=== PATIENT | female | born 1955 | race Asian ===

== ENCOUNTER 2019-03-27 16:37 | Observation (INO) | payer SELFPAY ==
--- NOTE | 2019-03-27 17:49 | PDOC ---
Documentation entered by Anirudh Painter SCRIBE, acting as scribe for Angle Basilio DO. Angle Basilio DO: This documentation has been prepared by the Inocencio parham Xhesika, SCRIBE, under my direction and personally reviewed by me in its entirety. I confirm that the documentation accurately reflects all work, treatment, procedures, and medical decision making performed by me. Attending Attestation - Resident Resident Name: Taurus Thompson - ED Attending Attestation I have performed the following: I have examined & evaluated the patient, The case was reviewed & discussed with the resident, I agree w/resident's findings & plan, Exceptions are as noted - HPI HPI: 03/27/19 17:33 The patient is a 64 year old female, with a significant PMH of cardiac problem? who presents to the emergency department with chest palpitations. The patient is not Bengali speaking, however, as per phone tobacco cutter, the patient describes her chest pain as a weird sensation. As per tobacco cutter, the patient states at the onset of her chest palpitations, she endorsed a syncopal episode while cooking, but denies hitting her head or LOC. The patient states she takes a medication from [place], but does not know the name. The patient denies sweating or dizziness. Denies fever, chills, nausea, vomit, diarrhea and constipation. Denies dysuria, frequency, urgency and hematuria. Allergies: NKA Past surgical history: None reported Social history: None reported - Physicial Exam PE: 03/27/19 17:34 GENERAL: Awake, alert, and fully oriented, in no acute distress HEAD: No signs of trauma EYES: PERRLA, EOMI, sclera anicteric, conjunctiva clear ENT: Auricles normal inspection, hearing grossly normal, nares patent, oropharynx clear without exudates. Moist mucosa NECK: Normal ROM, supple, no lymphadenopathy, JVD, or masses LUNGS: Breath sounds equal, clear to auscultation bilaterally. No wheezes, and no crackles HEART: Regular rate and rhythm, normal S1 and S2, no murmurs, rubs or gallops ABDOMEN: Soft, nontender, normoactive bowel sounds. No guarding, no rebound. No masses EXTREMITIES: Normal range of motion, no edema. No clubbing or cyanosis. No cords, erythema, or tenderness NEUROLOGICAL: Cranial nerves II through XII grossly intact. Normal speech. SKIN: Warm, Dry, normal turgor, no rashes or lesions noted. - Medical Decision Making 03/27/19 17:44 I, Dr. Angle Basilio, DO, attest that this document has been prepared under my direction and personally reviewed by me in its entirety. I further attest, that it accurately reflects all work, treatment, procedures and medical decision -making performed by me. 03/27/19 17:46 a/p: 64yo mandarin speaking female with a syncopal episode at home -had cp/palpitations prior to syncope -no recent travel -no pain/palpitations now -chronic back pain -takes a cardiac med from [employer] -tobacco cutter used -will send for head ct, ekg, cxr, labs -recent cough- will add cultures as pt was hypotensive with cp upon medic arrival -after 1L NSS by medics bp improved -will monitor on tele for arrhythmia 03/27/19 18:20 cxr clear cp free here grand-daughter at the bedside who states they buy the med off the street, states her only medical problem is that she has "heart-attacks" dimer neg trop neg 03/27/19 18:30 microblog sent to [facility] for obs placement for further eval of syncope and cp 03/27/19 19:33 resident discussed the case with [facility] who accepts the patient to service Heart Score/ECG Review - ECG Intrepretation Comment:: 03/27/19 17:44 sinus at 79, nl axis, nl interval, t wave flattening diffusely, no acute st changes
[2019-03-27 17:51] LABS: BASO % 0.3 % (0-2.0); EOS % 0.3 % (0-4.5); HEMATOCRIT 36.3 % (32.4-45.2); LYMPH % 17.6 % (8-40); MCH 29.8 pg (25.7-33.7); MCHC 32.9 g/dl (32.0-36.0); MEAN CELL VOLUME 90.6 fl (80-96); MEAN PLT VOLUME 8.1 fl (7.5-11.1); MONO % 13.1 % (3.8-10.2); NEUT % 68.7 % (42.8-82.8); PLATELET COUNT 184 K/MM3 (134-434); RBC 4.01 M/mm3 (3.60-5.2); RDW 13.1 % (11.6-15.6)
[2019-03-27 17:55] LABS: VENOUS PH 7.41 (7.31-7.41); VENOUS PO2 37.8 mmHg (30-40)
[2019-03-27 18:04] LABS: INR 1.08 (0.83-1.09); PROTHROMBIN TIME (PATIENT) 12.8 SEC (9.7-13.0)
--- NOTE | 2019-03-27 18:19 | PDOC ---
History of Present Illness - General Chief Complaint: Syncope/Near Syncope Stated Complaint: SYNCOPE Time Seen by Provider: 03/27/19 17:00 History Source: Patient Exam Limitations: Language Barrier (Mandarin) - History of Present Illness Initial Comments: 03/27/19 17:43 64 yo female, Mandarin speaking, first time at [facility] unknown (pt states she has cardiac problem and takes an unknown medication written in Mandarin, family state it is not prescribed and buys it on the street) BIBA for syncopal episode. Pt reported to feel dizzy, got up to drink water, collapse without hitting head, no LOC but weak and unable to ambulate. EMS report a BP in the 50s on arrival, after fluids and trendelenberg, BP in the 100s and reported awake, alert, aox3. Pt reported CP that resolved, has no current complaints. Denies current CP, SOB, sweating, N/V/F/C, changes in bowel or bladder habits, back pain, abdominal pain Past History - Suicide/Smoking/Psychosocial Hx Smoking History: Never smoked *Physical Exam - Vital Signs Last Vital Signs Temp Pulse Resp BP Pulse Ox 98 F 77 18 136/68 99 03/27/19 16:57 03/27/19 17:25 03/27/19 17:25 03/27/19 17:25 03/27/19 17:25 ED Treatment Course - ADDITIONAL ORDERS Additional order review: Laboratory Results 03/27/19 17:23 POC Glucometer 103 03/27/19 17:23 POC Glucometer 103 - RADIOLOGY Radiology Studies Ordered: Category Date Time Status HEAD CT WITHOUT CONTRAST [CT] Stat CT Scan 03/27/19 17:42 Ordered CHEST X-RAY PORTABLE* [RAD] Stat Radiology 03/27/19 17:26 Ordered Medical Decision Making - Medical Decision Making 03/27/19 18:57 Contacted PCP Roberto [phone], states she was driving and not able to provide information at this time and to call back in 30 min *DC/Admit/Observation/Transfer Diagnosis at time of Disposition: Syncope - Discharge Dispostion Condition at time of disposition: Stable Decision to Admit order: Yes - Referrals - Patient Instructions - Post Discharge Activity
[2019-03-27 18:25] LABS: ALBUMIN 3.7 g/dl (3.4-5.0); BILIRUBIN,TOTAL 0.8 mg/dL (0.2-1); CALCIUM 8.4 mg/dL (8.5-10.1); CREATININE 0.7 mg/dL (0.55-1.3); POTASSIUM 3.8 mmol/L (3.5-5.1)
[2019-03-27] MEDS ORDERED: LACTATED RINGERS SOLUTION 1,000 ML IV SCH (19:00)
--- NOTE | 2019-03-27 19:02 | HP ---
CHIEF COMPLAINT: chest pain/syncope PCP: Dr. Deysi Rodriguez HISTORY OF PRESENT ILLNESS: This is a 64-year-old Mandarin speaking female with a history of hypertension presenting to the hospital for chest pain and mild shortness of breath. She reports that the pain is left-sided, at 1-2/10. She states that it occurred this morning for about 30 minutes, and also reports an episode of Of falling earlier this morning but denies loss of consciousness. She states that her chest pain is more of a discomfort located on the left side accompanied by shortness of breath which occurs prior to syncopizing. She reports that the episodes usually last around 30 minutes and alleviate on their own without any intervention. Reports that these episodes happen every several months for the last 20 years. She states that she has also been syncopizing frequently, every six months or so according to the patient. She has seen a primary care physician and has had a Holter monitor placed before which did not show any acute abnormalities. She reports occasional palpitations that have been occuring for a long time on-and-off for a number of years. Currently she feels a little better, with decreased pain and shortness of breath. She reports that the thing that bothers her most is a swelling inside her nose that that has been progressing over the last three months. She was not able to exactly describe the feeling other than feeling congested and full. Reports a cough over the last couple of days that is productive of white sputum. Denies fevers, chills, abdominal pain, nausea, vomiting ,diarrhea. Denies recent travel or sick contacts. Patient takes two medications, one of them Bisoprolol 5mg daily, and the other is a Guamanian medication/herbal supplement that she takes every single day that we discovered is called "Wenxin Granule" which is theorized to treat "cardiac arrhythmias" ER course was notable for: (1) ALT/AST elevation (2) EKG NSR with possible T wave flattening inversion in V2/V3/AVF (3) Recent Travel: Denies PAST MEDICAL HISTORY: Hypertension PAST SURGICAL HISTORY: Denies Social History: Smoking: Denies Alcohol: Denies Drugs: Denies Family History: Denies any family history of heart disease, cancer, stroke, diabetes. Allergies No Known Allergies Allergy (Verified 03/27/19 18:46) HOME MEDICATIONS: Home Medications Medication Instructions Recorded Unobtainable 03/27/19 REVIEW OF SYSTEMS CONSTITUTIONAL: Absent: fever, chills, diaphoresis, generalized weakness, malaise, loss of appetite, weight change HEENT: Absent: rhinorrhea, nasal congestion, throat pain, throat swelling, difficulty swallowing, mouth swelling, ear pain, eye pain, visual changes CARDIOVASCULAR: chest pain Absent: syncope, palpitations, irregular heart rate, lightheadedness, peripheral edema RESPIRATORY: Absent: cough, shortness of breath, dyspnea with exertion, orthopnea, wheezing, stridor, hemoptysis GASTROINTESTINAL: Absent: abdominal pain, abdominal distension, nausea, vomiting, diarrhea, constipation, melena, hematochezia GENITOURINARY: Absent: dysuria, frequency, urgency, hesitancy, hematuria, flank pain, genital pain MUSCULOSKELETAL: Absent: myalgia, arthralgia, joint swelling, back pain, neck pain SKIN: Absent: rash, itching, pallor HEMATOLOGIC/IMMUNOLOGIC: Absent: easy bleeding, easy bruising, lymphadenopathy, frequent infections ENDOCRINE: Absent: unexplained weight gain, unexplained weight loss, heat intolerance, cold intolerance NEUROLOGIC: Absent: headache, focal weakness or paresthesias, dizziness, unsteady gait, seizure, mental status changes, bladder or bowel incontinence PSYCHIATRIC: Absent: anxiety, depression, suicidal or homicidal ideation, hallucinations. PHYSICAL EXAMINATION Vital Signs - 24 hr 03/27/19 03/27/19 16:57 17:25 Temperature 98 F Pulse Rate 71 Pulse Rate [ 77 Apical] Respiratory 16 18 Rate Blood Pressure 111/62 Blood Pressure 136/68 [Right Arm] O2 Sat by Pulse 98 99 Oximetry (%) GENERAL: A&Ox3, no acute distress EYES: PERRLA, EOMI ENT: Moist mucus membranes NECK: No JVD LUNGS: CTA, no wheezes HEART: RRR, no murmurs ABDOMEN: Soft, nontender, BS present MUSCULOSKELETAL: No CVA Tenderness EXTREMITIES: 2+ pulses, no edema. NEUROLOGICAL: Cranial nerves II-XII intact. R sided lip droop noted which patient says is has been occurring due to swelling in her face Laboratory Results - last 24 hr 03/27/19 03/27/19 03/27/19 17:23 17:26 17:26 WBC 8.0 RBC 4.01 Hgb 12.0 Hct 36.3 MCV 90.6 MCH 29.8 MCHC 32.9 RDW 13.1 Plt Count 184 MPV 8.1 Absolute Neuts (auto) 5.5 Neutrophils % 68.7 Lymphocytes % 17.6 Monocytes % 13.1 H Eosinophils % 0.3 Basophils % 0.3 Nucleated RBC % 0 PT with INR 12.80 INR 1.08 PTT (Actin FS) 32.0 D-Dimer VBG pH POC VBG pCO2 POC VBG pO2 VBG HCO3 VBG O2 Sat (Chante) VBG Base Excess Sodium Potassium Chloride Carbon Dioxide Anion Gap BUN Creatinine Est GFR (CKD-EPI)AfAm Est GFR (CKD-EPI)NonAf POC Glucometer 103 Random Glucose Lactic Acid Calcium Total Bilirubin AST ALT Alkaline Phosphatase Troponin I Total Protein Albumin 03/27/19 03/27/19 03/27/19 17:26 17:26 17:26 WBC RBC Hgb Hct MCV MCH MCHC RDW Plt Count MPV Absolute Neuts (auto) Neutrophils % Lymphocytes % Monocytes % Eosinophils % Basophils % Nucleated RBC % PT with INR INR PTT (Actin FS) D-Dimer VBG pH 7.41 POC VBG pCO2 36.0 L POC VBG pO2 37.8 VBG HCO3 22.5 L VBG O2 Sat (Chante) 69.0 L VBG Base Excess -1.1 Sodium 137 Potassium 3.8 Chloride 105 Carbon Dioxide 23 Anion Gap 9 BUN 15 Creatinine 0.7 Est GFR (CKD-EPI)AfAm 105.38 Est GFR (CKD-EPI)NonAf 90.92 POC Glucometer Random Glucose 105 Lactic Acid 1.3 Calcium 8.4 L Total Bilirubin 0.8 AST 61 H ALT 74 H Alkaline Phosphatase 77 Troponin I Total Protein 7.0 Albumin 3.7 03/27/19 03/27/19 17:26 17:26 WBC RBC Hgb Hct MCV MCH MCHC RDW Plt Count MPV Absolute Neuts (auto) Neutrophils % Lymphocytes % Monocytes % Eosinophils % Basophils % Nucleated RBC % PT with INR INR PTT (Actin FS) D-Dimer 424 VBG pH POC VBG pCO2 POC VBG pO2 VBG HCO3 VBG O2 Sat (Chante) VBG Base Excess Sodium Potassium Chloride Carbon Dioxide Anion Gap BUN Creatinine Est GFR (CKD-EPI)AfAm Est GFR (CKD-EPI)NonAf POC Glucometer Random Glucose Lactic Acid Calcium Total Bilirubin AST ALT Alkaline Phosphatase Troponin I < 0.02 Total Protein Albumin Current Medications Atenolol (Tenormin -) 50 mg PO DAILY KAJAL Enoxaparin Sodium (Lovenox -) 40 mg SQ DAILY [facility] Lactated Ringer's (Lactated Ringers Solution) 1,000 mls @ 83 mls/hr IV ASDIR KAJAL Stop: 03/28/19 07:03 ASSESSMENT/PLAN: 64-year-old Mandarin speaking female with a history of hypertension presenting to the hospital for chest pain and mild shortness of breath. #Chest Pain: The chest pain accompanied by syncopal episodes is concerning for a cardiac arrhythmia, and thus I would like to admit the patient to telemetry for evaluation and cardiac monitoring -initial troponin negative, repeat after 6 hours -EKG shows NSR with possible T wave inversions/flattening in V2 -orthostatics negative -head CT negative -hold Wenxin Granule medication -cardiology consultation Dr. Vieyra -echocardiogram -carotid doppler -encourage patient to discontinue her "Wenxin Granule" medication that she takes daily for cardiac arrhythmia #Intranasal Swelling: Patient reports that this is been progressive for three months -Will get a CT of her facial bones #Transaminitis: unclear etiology at this time, possibly due to Wenxin Granule use every day. Research has shown that this medication can lead to rise in transaminases and cause epigastric discomfort, nausea, and dry mouth -will obtain RUQ ultrasound -trend transaminases after medication discontinuation -suggest GI referral after discharge, may need colonoscopy #Hypertension: on bisoprolol 5mg at home, well controlled -continue equivalent medication - atenolol 50mg daily #FEN -LR @ 83cc/hr -lytes normal -regular diet #Prophylaxis -lovenox #Disposition -admit tele obs Visit type - Emergency Visit Emergency Visit: Yes ED Registration Date: 03/27/19 Care time: The patient presented to the Emergency Department on the above date and was hospitalized for further evaluation of their emergent condition. - New Patient This patient is new to me today: Yes Date on this admission: 03/27/19 - Critical Care Critical Care patient: No
--- NOTE | 2019-03-27 19:10 | PN ---
Teaching Attending Note Name of Resident: Kapil Dobbins ATTENDING PHYSICIAN STATEMENT I saw and evaluated the patient. I reviewed the resident's note and discussed the case with the resident. I agree with the resident's findings and plan as documented. SUBJECTIVE: Patient is a 64 year old woman with a PMH of HTN and an unspecified cardiac problem? who presents to the ER with chest palpitations and syncope. The patient is not Trinidadian speaking, however, as per phone java lead developer, the patient describes her chest pain as a weird sensation. As per java lead developer, the patient states at the onset of her chest palpitations, she endorsed a syncopal episode while cooking, but denies hitting her head or LOC. The patient states she takes a medication from [place], but does not know the name. Has a cough productive of clear sputum. Has also had a feeling of fullness/mass in the right intranasal space. No nose bleeding. The patient denies sweating or dizziness. Denies fever, chills, nausea, vomit, diarrhea and constipation. Denies dysuria, frequency, urgency and hematuria. OBJECTIVE: Alert and not orthostatic Vital Signs Period Temp Pulse Resp BP Sys/Rodney Pulse Ox Last 24 Hr 98 F 71-77 16-18 111-136/62-68 98-99 HEENT: No Jaundice, eye redness or discharge, PERRLA, EOMI. Normocephalic, atraumatic. External ears are normal and hearing is grossly intact. No nasal discharge. Neck: Supple, nontender. No palpable adenopathy or thyromegaly. No JVD Chest: Good effort. Clear to auscultation and percussion. Heart: Regular. No S3, rub or murmur Abdomen: Not distended, soft, nontender and no HSM. No rebound or guarding. Normal bowel sounds. Ext: Peripheral pulses intact. No leg edema. Skin: Warm and dry. No petechiae, rash or ecchymosis. Neuro: Alert. Oriented x3. CN 2-12 grossly intact. Right lip droop. Sensation grossly intact in all four extremities and DTR are symmetric. Psych: Appropriate mood and affect. Good insight. Current Medications Generic Name Dose Route Start Last Admin Trade Name Freq PRN Reason Stop Dose Admin Enoxaparin Sodium 40 mg 03/28/19 10:00 Lovenox - SQ DAILY KAJAL Lactated Ringer's 1,000 mls @ 83 mls/hr 03/27/19 19:00 Lactated Ringers Solution IV 03/28/19 07:03 ASDIR [facility] Home Medications Medication Instructions Recorded Unobtainable 03/27/19 Abnormal Lab Results 03/27/19 03/27/19 03/27/19 17:26 17:26 17:26 Monocytes % 13.1 H POC VBG pCO2 36.0 L VBG HCO3 22.5 L VBG O2 Sat (Chante) 69.0 L Calcium 8.4 L AST 61 H ALT 74 H ASSESSMENT AND PLAN: 1. Syncope/Chest pain - Etiology of syncope is unclear. No acute pathology on head CT and CXR shows mild cardiomegaly. Now chest pain free. EKG shows NSR with T wave inversion in V1-3. Initial troponin is negative. Will admit to telemetry to rule out ACS, get ECHO, fasting lipids, carotid doppler and facial bone CT scan. Consult ENT for intranasal lesion complaint. Elevated LFTs are unexplained - ?possible side effect of the unknown alternative medicine product that she is taking. Patient being asked to stop ingesting the product. Will trend LFTs, get RUQ sonogram and hepatitis serology. 2. DVT prophylaxis - Lovenox 40 mg SQ q 24 hours. 3. Advance directives - Full code
[2019-03-28 00:01] LABS: CHOLESTEROL 174 mg/dL (50-200); HDL CHOLESTEROL 86 mg/dL (40-60); TRIGLYCERIDES 42 mg/dL (0-150)
[2019-03-28 02:38] LABS: EPI CELLS 2.9 /HPF (0-5/HPF); HYALINE CASTS 1 /lpf (0-8); PH,URINE 6.5 (5.0-8.0); URINE APPEARANCE CLEAR; URINE BACTERIA 7.3 /hpf (NEGATIVE); URINE BILIRUBIN NEGATIVE (NEGATIVE); URINE COLOR YELLOW; URINE GLUCOSE (UA) NEGATIVE (NEGATIVE); URINE KETONE NEGATIVE (NEGATIVE); URINE LEUK ESTERASE NEGATIVE (NEGATIVE); URINE NITRITE NEGATIVE (NEGATIVE); URINE PROTEIN NEGATIVE (NEGATIVE); URINE RBC 3 /hpf (0-4); URINE UROBILINOGEN 0.2 mg/dL (0.2-1.0); URINE WBC 2 /hpf (0-5)
[2019-03-28] MEDS ORDERED: ACETAMINOPHEN 1000 MG/100 ML VIAL (NON FORMULARY) IVPB ONE (02:44)
[2019-03-28 06:41] LABS: HEMATOCRIT 34.2 % (32.4-45.2); HEMOGLOBIN 11.5 GM/dL (10.7-15.3); MCH 30.3 pg (25.7-33.7); MCHC 33.6 g/dl (32.0-36.0); MEAN CELL VOLUME 90.4 fl (80-96); MEAN PLT VOLUME 7.6 fl (7.5-11.1); PLATELET COUNT 183 K/MM3 (134-434); RBC 3.78 M/mm3 (3.60-5.2); RDW 13.2 % (11.6-15.6); WHITE BLOOD COUNT 6.1 K/mm3 (4.0-10.0)
[2019-03-28 07:19] LABS: INR 1.13 (0.83-1.09); PROTHROMBIN TIME (PATIENT) 13.3 SEC (9.7-13.0)
[2019-03-28 07:30] LABS: ALBUMIN 3.3 g/dl (3.4-5.0); ALK PHOS 72 U/L (45-117); ANION GAP 8 MMOL/L (8-16); BILIRUBIN,TOTAL 0.8 mg/dL (0.2-1); BLOOD UREA NITROGEN 12 mg/dL (7-18); CALCIUM 7.9 mg/dL (8.5-10.1); CHLORIDE 111 mmol/L (98-107); CO2 23 mmol/L (21-32); CREATININE 0.5 mg/dL (0.55-1.3); GLUCOSE,RANDOM 96 mg/dL (74-106); MAGNESIUM 2.4 mg/dL (1.8-2.4); PHOSPHOROUS 3.3 mg/dL (2.5-4.9); POTASSIUM 3.3 mmol/L (3.5-5.1); SGOT/AST 32 U/L (15-37); SGPT/ALT 58 U/L (13-61); SODIUM 142 mmol/L (136-145); TOT PROT 6.4 g/dl (6.4-8.2)
[2019-03-28] MEDS ORDERED: POTASSIUM CHLORIDE TABS 20 MEQ TABLET.ER (FP) PO ONE ×2 (08:06→10:54)
--- NOTE | 2019-03-28 09:01 | EKG ---
Test Reason : Blood Pressure : / mmHG Vent. Rate : 079 BPM Atrial Rate : 079 BPM P-R Int : 182 ms QRS Dur : 090 ms QT Int : 394 ms P-R-T Axes : 078 073 047 degrees QTc Int : 451 ms NORMAL SINUS RHYTHM NORMAL ECG NO PREVIOUS ECGS AVAILABLE Confirmed by SANTIAGO CHASE MD ([id number]) on 03/28/2019 9:01:27 AM Referred By: Confirmed By:SNATIAGO CHASE MD
--- NOTE | 2019-03-28 09:09 | CON.CARD ---
Consult Consult Specialty:: Cardiology Referred by:: Dr. Vicente Reason for Consultation:: Syncope - History of Present Illness Chief Complaint: Syncope History of Present Illness: 64F with PMH HTN and "cardiac arrhythmia" diagnosed 10 years ago in [place]. History obtained from [employer] [id number]. Reports she "passed out " yesterday. Prior to syncope, felt rapid palpitations and some chest discomfort. No BALTAZAR. Does have chronic palpitations. Denies exertional CP. No prior CA. Head CT negative, D- dimer negative, D- dimer negative. - History Source History Provided By: Patient - Past Medical History Cardio/Vascular: Yes: HTN, Other (Cardiac arrhythmia) Gastrointestinal: No: Ascites, Cancer, Constipation, Crohn's Disease, Diverticulitis, Diverticulosis, Esophageal Varices, Gastritis, GERD, GI Bleed, Hemorrhoids, Hiatal Hernia, Inflamatory Bowel Disease, Irritable Bowel Disease, Pancreatitis, Peptic Ulcer Disease, Ulcerative Colitis, Other Hepatobiliary: No: Cirrhosis, Cholelithiasis, Cholecystitis, Choledocholithiasis , Hepatitis A, Hepatitis B, Hepatitis C, Other Renal/: No: Renal Failure, Renal Inusuff, BPH, Cancer, Hematuria, Hemodialysis , Neurogenic Bladder, Renal Calculi, UTI, Other Heme/Onc: No: Anemia, B12 Deficiency, Bleeding Disorder, Cancer, Current Chemotherapy, Current Radiation Therapy, Hemochromatosis, Hypercoaguable State, Myeloproliferative Synd, Sickle Cell Disease, Sickle Cell Trait, Thrombocytopenia, Other Infectious Disease: No: AIDS, C-Diff, Herpes Zoster, HIV, MRSA, STD's, Tuberculosis, VREF, Other Musculoskeletal: No: Bursitis, Chronic low back pain, Hemiparesis, Hemiplegia, Osteoarthritis, Paraplegia, Other Rheumatology: No: Fibromyalgia, Gout, Lupus, Rheumatoid Arthritis, Sarcoidosis, Vasculitis, Other ENT: No: Allergic Rhinitis, Sinusitis, Other Endocrine: No: Elías's Disease, Henry's Disease, Diabetes Insipidus, Diabetes Mellitus, Hyperparathyroidism, Hyperthyroidism, Hypothyroidism, Osteopenia, SIADH, Other Dermatology: No: Basal Cell, Cellulitis, Eczema, Melanoma, Psoriasis, Squamous Cell, Other - Alcohol/Substance Use Hx Alcohol Use: No History of Substance Use: reports: None - Smoking History Smoking history: Never smoked - Social History History of Recent Travel: No Home Medications - Allergies Allergies/Adverse Reactions: Allergies Allergy/AdvReac Type Severity Reaction Status Date / Time No Known Allergies Allergy Verified 03/27/19 18:46 - Home Medications Home Medications: Ambulatory Orders Unobtainable 03/27/19 Family Disease History - Family Disease History Family History: Unremarkable (no early CAD or SCD) Review of Systems - Review of Systems Constitutional: reports: No Symptoms Eyes: reports: No Symptoms HENT: reports: No Symptoms Neck: reports: No Symptoms Cardiovascular: reports: Chest Pain, Palpitations Respiratory: reports: No Symptoms Gastrointestinal: reports: No Symptoms Genitourinary: reports: No Symptoms Neurological: reports: No Symptoms Endocrine: reports: No Symptoms Hematology/Lymphatic: reports: No Symptoms Psychiatric: reports: No Symptoms - Risk Factors Known Risk Factors: Yes: Hypertension Vital Signs: Vital Signs Temperature 97.4 F L 03/28/19 06:54 Pulse Rate 75 03/28/19 06:54 Respiratory Rate 17 03/28/19 06:54 Blood Pressure 122/70 03/28/19 06:54 O2 Sat by Pulse Oximetry (%) 98 03/28/19 06:54 Constitutional: Yes: No Distress, Calm Eyes: Yes: Conjunctiva Clear Respiratory: Yes: CTA Bilaterally Gastrointestinal: Yes: Soft Cardiovascular: Yes: Regular Rate and Rhythm JVD: No Carotid Bruit: No PMI: Non-Displaced Heart Sounds: Yes: S1, S2 Edema: No Neurological: Yes: Alert, Oriented ...Motor Strength: WNL - Other Data Labs, Other Data: CBC, BMP 03/28/19 06:00 03/28/19 06:00 INR, PTT INR 1.13 (0.83-1.09) H 03/28/19 06:00 Troponin, BNP 03/27/19 03/28/19 17:26 06:00 Troponin I < 0.02 < 0.02 Troponin, BNP 03/27/19 03/28/19 17:26 06:00 Troponin I < 0.02 < 0.02 Laboratory Tests 03/27/19 03/27/19 03/28/19 17:26 17:26 06:00 WBC 6.1 Hgb 11.5 Plt Count 183 INR D-Dimer 424 Sodium Potassium Creatinine Creatine Kinase Troponin I < 0.02 TSH 03/28/19 03/28/19 06:00 06:00 WBC Hgb Plt Count INR 1.13 H D-Dimer Sodium 142 Potassium 3.3 L Creatinine 0.5 L Creatine Kinase 68 Troponin I < 0.02 TSH 0.19 L NSR, mild nonspecific T wave change V3 Echo: Pending Imaging - Results Chest X-ray: Image Reviewed Cat Scan: Report Reviewed EKG: Image Reviewed Assessment/Plan IMP: 1. Syncope 2. H/o cardiac arrhythmia 3. Chest pain with palpitations REC: 1. Tele to r/o arrhythmia 2. Echo for EF assessment 3. Serial cardiac enzymes x 3 4. D- dimer negative, doubt PE. 5. Will need ischemic evaluation once arrhythmia excluded and enzymes completed. 6. Further eval thyroid as per PMD.
[2019-03-28] MEDS: ATENOLOL 50 MG TABLET (FP) PO SCH (10:42)
[2019-03-28] MEDS: ENOXAPARIN NA (PORCINE) 40 MG/0.4 ML DISP.SYRIN SQ SCH (10:42)
[2019-03-28] MEDS ORDERED: ENOXAPARIN NA (PORCINE) 40 MG/0.4 ML DISP.SYRIN SQ ONE (10:54)
[2019-03-28] MEDS ORDERED: ATENOLOL 25 MG TABLET (FP) ONE (10:56)
--- NOTE | 2019-03-28 10:57 | ECHO ---
Name: GEORGE HAGER Exam:Adult Echocardiogram Study Date: 03/28/2019 07:09 AM Age: 64 yrs Reason For Study: SYNCOPE Height: 57 in Weight: 100 lb BSA: 1.3 m2 MMode/2D Measurements & Calculations IVSd: 0.83 cm Ao root diam: 3.1 cm LVIDd: 4.6 cm LA dimension: 3.9 cm LVIDs: 2.7 cm ACS: 1.6 cm LVPWd: 0.94 cm IVSs: 1.1 cm LVPWs: 1.4 cm EDV(Teich): 97.6 ml ESV(Teich): 27.1 ml Doppler Measurements & Calculations MV E max latoya: 67.1 cm/sec Ao V2 max: 168.7 cm/sec MV A max latoya: 80.5 cm/sec Ao max P.4 mmHg MV E/A: 0.83 Ao V2 mean: 124.6 cm/sec Ao mean P.8 mmHg Ao V2 VTI: 38.2 cm AI P1/2t: 506.4 msec AI max latoya: 483.7 cm/sec MR max latoya: 494.8 cm/sec AI max P.6 mmHg MR max P.9 mmHg AI dec slope: 279.8 cm/sec2 TR max latoya: 251.9 cm/sec Med Peak E' Latoya: 7.5 cm/sec TR max P.4 mmHg Med E/e': 9.0 Lat Peak E' Latoya: 8.8 cm/sec Lat E/e': 7.7 Left Ventricle The left ventricular size, thickness and function are normal. Ejection Fraction = 55-60%. The transmi tral spectral Doppler flow pattern is suggestive of impaired LV relaxation. Right Ventricle The right ventricle is normal in size and function. Atria The left atrium is borderline dilated. Mitral Valve The mitral valve is normal in structure and function. There is no mitral valve stenosis. There is mil d mitral regurgitation. Tricuspid Valve The tricuspid valve is normal in structure and function. There is mild tricuspid regurgitation. Right ventricular systolic pressure is normal. Aortic Valve The aortic valve is trileaflet. No hemodynamically significant valvular aortic stenosis. Mild aortic regurgitation. Pulmonic Valve The pulmonic valve is not well seen, but is grossly normal. There is no pulmonic valvular stenosis. T here is no pulmonic valvular regurgitation. Great Vessels The aortic root is normal size. Pericardium/Pleura There is no pericardial effusion. Interpretation Summary The left ventricular size, thickness and function are normal Ejection Fraction = 55-60%. The transmitral spectral Doppler flow pattern is suggestive of impaired LV relaxation. The right ventricle is normal in size and function. The left atrium is borderline dilated. There is mild mitral regurgitation. There is mild tricuspid regurgitation. Right ventricular systolic pressure is normal. Mild aortic regurgitation. There is no pericardial effusion. MD Tapia *Bob 03/28/2019 10:57 AM
[2019-03-28] MEDS ORDERED: REGADENOSON 0.4 MG/5 ML PRE-FILLED SYRINGE IVPUSH ONE (14:15)
[2019-03-28 15:36] VITALS: BMI 21.2
--- NOTE | 2019-03-28 16:42 | PN ---
Physical Exam: SUBJECTIVE: Patient seen and examined at bedside. Currently without CP. has returned from stress test. OBJECTIVE: Vital Signs Period Temp Pulse Resp BP Sys/Rodney Pulse Ox Last 24 Hr 97.4 F-100.3 F 69-78 16-18 111-156/62-76 98-99 GENERAL: The patient is awake, alert, and fully oriented, in no acute distress. speaks cantonese HEAD: Normal with no signs of trauma. EYES: PERRL, extraocular movements intact, sclera anicteric, conjunctiva clear. No ptosis. ENT: Ears normal, nares patent, oropharynx clear without exudates, moist mucous membranes. NECK: Trachea midline, full range of motion, supple. LUNGS: Breath sounds equal, clear to auscultation bilaterally, no wheezes, no crackles, no accessory muscle use. HEART: Regular rate and rhythm, S1, S2 without murmur, rub or gallop. ABDOMEN: Soft, nontender, nondistended, normoactive bowel sounds, no guarding EXTREMITIES: 2+ pulses, warm, well-perfused, no edema. NEUROLOGICAL: Cranial nerves II through XII grossly intact. Normal speech, gait not observed. PSYCH: Normal mood, normal affect. SKIN: Warm, dry, normal turgor, no rashes or lesions noted Laboratory Tests 03/27/19 03/28/19 17:26 06:00 Troponin I < 0.02 < 0.02 ASSESSMENT/PLAN: 64-year-old Mandarin speaking female with a history of hypertension presenting to the hospital for chest pain and mild shortness of breath. #chest pain, r/o ACS -seen by cardio; Dr. Rojas -stress test WNL-w/o ischemia, ECHO ef 50-55%, impaired lv relaxation -trops (-)x 2 -24 hr tele monitoring; can d/c tomorrow if no events -c/t hold wenxin granule medication #intranasal swelling -ct facial bones - WNL #transaminitis -self resolved; asymptomatic -f/u hep panel #htn -c/w atenolol #F/E/N off IVF continue to follow lytes started on cholesterol free diet #ppx SCD's #Dispo continue monitoring on tele Visit type - Emergency Visit Emergency Visit: Yes ED Registration Date: 03/28/19 Care time: The patient presented to the Emergency Department on the above date and was hospitalized for further evaluation of their emergent condition. - New Patient This patient is new to me today: Yes Date on this admission: 03/28/19 - Critical Care Critical Care patient: No
--- NOTE | 2019-03-28 17:53 | PN ---
Teaching Attending Note Name of Resident: Amisha Worley ATTENDING PHYSICIAN STATEMENT I saw and evaluated the patient. I reviewed the resident's note and discussed the case with the resident. I agree with the resident's findings and plan as documented. SUBJECTIVE: No further chest discomfort. No cough/sputum/fever/chills. Initially wanted to leave AMA but changed her mind. OBJECTIVE: T max 100.3, Hemodynamically Stable. Last Vital Signs Temp Pulse Resp BP Pulse Ox 99.5 F 69 16 156/76 99 03/28/19 15:38 03/28/19 11:45 03/28/19 15:38 03/28/19 15:38 03/28/19 15:11 HEENT - Atraumatic, Normocephalic Heart - S1, S2, RRR Lungs - clear to auscultation Abdomen - Soft, non-tender. Bowel Sounds normal. Extremities - no edema, no calf tenderness. Laboratory Results - last 24 hr 03/27/19 03/27/19 03/27/19 17:26 17:26 17:26 WBC 8.0 RBC 4.01 Hgb 12.0 Hct 36.3 MCV 90.6 MCH 29.8 MCHC 32.9 RDW 13.1 Plt Count 184 MPV 8.1 Absolute Neuts (auto) 5.5 Neutrophils % 68.7 Lymphocytes % 17.6 Monocytes % 13.1 H Eosinophils % 0.3 Basophils % 0.3 Nucleated RBC % 0 PT with INR 12.80 INR 1.08 PTT (Actin FS) 32.0 D-Dimer VBG pH 7.41 POC VBG pCO2 36.0 L POC VBG pO2 37.8 VBG HCO3 22.5 L VBG O2 Sat (Chante) 69.0 L VBG Base Excess -1.1 Sodium Potassium Chloride Carbon Dioxide Anion Gap BUN Creatinine Est GFR (CKD-EPI)AfAm Est GFR (CKD-EPI)NonAf Random Glucose Lactic Acid Calcium Phosphorus Magnesium Total Bilirubin AST ALT Alkaline Phosphatase Creatine Kinase Troponin I Total Protein Albumin Triglycerides Cholesterol Total LDL Cholesterol HDL Cholesterol TSH Free T4 Urine Color Urine Appearance Urine pH Ur Specific [place] Urine Protein Urine Glucose (UA) Urine Ketones Urine Blood Urine Nitrite Urine Bilirubin Urine Urobilinogen Ur Leukocyte Esterase Urine WBC (Auto) Urine RBC (Auto) Urine Casts (Auto) U Epithel Cells (Auto) Urine Bacteria (Auto) 05/03/27/19 03/27/19 17:26 17:26 17:26 WBC RBC Hgb Hct MCV MCH MCHC RDW Plt Count MPV Absolute Neuts (auto) Neutrophils % Lymphocytes % Monocytes % Eosinophils % Basophils % Nucleated RBC % PT with INR INR PTT (Actin FS) D-Dimer VBG pH POC VBG pCO2 POC VBG pO2 VBG HCO3 VBG O2 Sat (Chante) VBG Base Excess Sodium 137 Potassium 3.8 Chloride 105 Carbon Dioxide 23 Anion Gap 9 BUN 15 Creatinine 0.7 Est GFR (CKD-EPI)AfAm 105.38 Est GFR (CKD-EPI)NonAf 90.92 Random Glucose 105 Lactic Acid 1.3 Calcium 8.4 L Phosphorus Magnesium Total Bilirubin 0.8 AST 61 H ALT 74 H Alkaline Phosphatase 77 Creatine Kinase Troponin I < 0.02 Total Protein 7.0 Albumin 3.7 Triglycerides Cholesterol Total LDL Cholesterol HDL Cholesterol TSH Free T4 Urine Color Urine Appearance Urine pH Ur Specific [place] Urine Protein Urine Glucose (UA) Urine Ketones Urine Blood Urine Nitrite Urine Bilirubin Urine Urobilinogen Ur Leukocyte Esterase Urine WBC (Auto) Urine RBC (Auto) Urine Casts (Auto) U Epithel Cells (Auto) Urine Bacteria (Auto) 03/27/19 03/27/19 03/28/19 17:26 23:20 02:25 WBC RBC Hgb Hct MCV MCH MCHC RDW Plt Count MPV Absolute Neuts (auto) Neutrophils % Lymphocytes % Monocytes % Eosinophils % Basophils % Nucleated RBC % PT with INR INR PTT (Actin FS) D-Dimer 424 VBG pH POC VBG pCO2 POC VBG pO2 VBG HCO3 VBG O2 Sat (Chante) VBG Base Excess Sodium Potassium Chloride Carbon Dioxide Anion Gap BUN Creatinine Est GFR (CKD-EPI)AfAm Est GFR (CKD-EPI)NonAf Random Glucose Lactic Acid Calcium Phosphorus Magnesium Total Bilirubin AST ALT Alkaline Phosphatase Creatine Kinase Troponin I Total Protein Albumin Triglycerides 42 Cholesterol 174 Total LDL Cholesterol 79 HDL Cholesterol 86 H TSH Free T4 Urine Color Yellow Urine Appearance Clear Urine pH 6.5 Ur Specific [place] 1.010 Urine Protein Negative Urine Glucose (UA) Negative Urine Ketones Negative Urine Blood Trace Urine Nitrite Negative Urine Bilirubin Negative Urine Urobilinogen 0.2 Ur Leukocyte Esterase Negative Urine WBC (Auto) 2 Urine RBC (Auto) 3 Urine Casts (Auto) 1 U Epithel Cells (Auto) 2.9 Urine Bacteria (Auto) 7.3 03/28/19 03/28/19 03/28/19 06:00 06:00 06:00 WBC 6.1 RBC 3.78 Hgb 11.5 Hct 34.2 MCV 90.4 MCH 30.3 MCHC 33.6 RDW 13.2 Plt Count 183 MPV 7.6 Absolute Neuts (auto) Neutrophils % Lymphocytes % Monocytes % Eosinophils % Basophils % Nucleated RBC % PT with INR 13.30 H INR 1.13 H PTT (Actin FS) D-Dimer VBG pH POC VBG pCO2 POC VBG pO2 VBG HCO3 VBG O2 Sat (Chante) VBG Base Excess Sodium 142 Potassium 3.3 L Chloride 111 H Carbon Dioxide 23 Anion Gap 8 BUN 12 Creatinine 0.5 L Est GFR (CKD-EPI)AfAm 117.71 Est GFR (CKD-EPI)NonAf 101.56 Random Glucose 96 Lactic Acid Calcium 7.9 L Phosphorus 3.3 Magnesium 2.4 Total Bilirubin 0.8 AST 32 ALT 58 Alkaline Phosphatase 72 Creatine Kinase 68 Troponin I < 0.02 Total Protein 6.4 Albumin 3.3 L Triglycerides Cholesterol Total LDL Cholesterol HDL Cholesterol TSH 0.19 L Free T4 1.08 Urine Color Urine Appearance Urine pH Ur Specific [place] Urine Protein Urine Glucose (UA) Urine Ketones Urine Blood Urine Nitrite Urine Bilirubin Urine Urobilinogen Ur Leukocyte Esterase Urine WBC (Auto) Urine RBC (Auto) Urine Casts (Auto) U Epithel Cells (Auto) Urine Bacteria (Auto) Current Medications Generic Name Dose Route Start Last Admin Trade Name Freq PRN Reason Stop Dose Admin Atenolol 50 mg 03/29/19 10:00 Tenormin - PO DAILY KAJAL ASSESSMENT AND PLAN: 64 year old female with history of HTN, presents with history of intermittent CP and SOB prior to possible syncopal episode last evening. Reports history of periodic syncope without preceding CP. 1. Atypical Chest Pain ECG - SR, T wave flattening in V2 TropI neg x 2 NM Stress Test negative 2. History of Syncope CT Head - negtiave Facial Bones CT negative Prior Holter negative reportedly Carotid Duplex - normal. Echo - impaired LV relaxation Evaluated by Cardiology - recommends 24 hour telemetry monitoring. 3. Elevated Transaminases - resolved. ?sec to herbal medication Wenxin Granule Abdominal US - GB Polyp. 4. HTN - Normally on Bisoprolol. Started on formulary Atenolol. DVT Px - Lovenox SQ
[2019-03-29 05:14] LABS: HEP.C VIRUS AB <0.1 s/co ratio (0.0-0.9)
[2019-03-29 06:29] LABS: BASO % 0.7 % (0-2.0); EOS % 2.1 % (0-4.5); HEMATOCRIT 37.2 % (32.4-45.2); HEMOGLOBIN 12.6 GM/dL (10.7-15.3); LYMPH % 28.4 % (8-40); MCH 30.6 pg (25.7-33.7); MCHC 33.9 g/dl (32.0-36.0); MEAN CELL VOLUME 90.4 fl (80-96); MEAN PLT VOLUME 7.8 fl (7.5-11.1); MONO % 11.8 % (3.8-10.2); PLATELET COUNT 208 K/MM3 (134-434); RBC 4.12 M/mm3 (3.60-5.2); RDW 13.2 % (11.6-15.6); WHITE BLOOD COUNT 4.4 K/mm3 (4.0-10.0)
[2019-03-29 07:05] LABS: ALBUMIN 3.6 g/dl (3.4-5.0); BILIRUBIN,TOTAL 0.7 mg/dL (0.2-1); CALCIUM 8.5 mg/dL (8.5-10.1); CREATININE 0.6 mg/dL (0.55-1.3); MAGNESIUM 2.7 mg/dL (1.8-2.4); PHOSPHOROUS 3.1 mg/dL (2.5-4.9); POTASSIUM 3.5 mmol/L (3.5-5.1)
[2019-03-29] MEDS: ATENOLOL 50 MG TABLET (FP) PO SCH (09:04)
[2019-03-29] MEDS: ENOXAPARIN NA (PORCINE) 40 MG/0.4 ML DISP.SYRIN SQ SCH (09:05)
--- NOTE | 2019-03-29 09:06 | PN ---
Progress Note, Physician Chief Complaint: syncope History of Present Illness: dtr on phone translating this am: mother states syncope happened approx 4pm, standing in her room doing nothing strenuous. felt extremely weak/no power, and tired--fell to floor and doesn't know what happened. REPEATEDLY DENYING THAT SHE FELT ANY PALPITATIONS OR CP AT THAT TIME. states she felt something in her chest that was vague/mild and she cannot describe the sx including in Mandarin to her dtr. perhaps like feeling cannot get air or enough breath. no warmth/flushing. did not skip meals that day has felt that feeling before in [place] BUT NEVER PASSED OUT BEFORE WITH IT--saw doctors there but no dx made including no rhythm disorder dx (no AC or other Rx med given) has had no recurrent sx in hospital no leg swelling no cigs - Current Medication List Current Medications: Active Medications Atenolol (Tenormin -) 50 mg PO DAILY [facility] Last Admin: 03/28/19 10:42 Dose: Not Given Atenolol (Tenormin -) 50 mg PO DAILY [facility] Enoxaparin Sodium (Lovenox -) 40 mg SQ DAILY [facility] Last Admin: 03/28/19 10:42 Dose: Not Given - Objective Vital Signs: Vital Signs Temperature 98.9 F 03/29/19 06:00 Pulse Rate 78 03/29/19 06:00 Respiratory Rate 18 03/29/19 06:00 Blood Pressure 130/71 03/29/19 06:00 O2 Sat by Pulse Oximetry (%) 98 03/28/19 21:00 Constitutional: Yes: No Distress, Calm Eyes: No: Sclera Icterus HENT: No: Nasal Congestion Cardiovascular: Yes: Regular Rate and Rhythm, S1, S2, Other (PMI non diplaced). No: Gallop, Murmur Respiratory: Yes: CTA Bilaterally. No: Accessory Muscle Use Gastrointestinal: Yes: Normal Bowel Sounds, Soft. No: Tenderness Musculoskeletal: Yes: Other (No kyphosis) Extremities: No: Cyanosis Edema: No Integumentary: No: Jaundice Neurological: Yes: Alert, Oriented (x3) Psychiatric: No: Agitated Labs: CBC, BMP 03/29/19 05:30 03/29/19 05:30 INR, PTT INR 1.13 (0.83-1.09) H 03/28/19 06:00 Assessment/Plan ECG: nonsp ST-T Echo: nl LV/EF. nl RV. mild AI/MR/TR. nl RVSP MPI (danyel): no isch STs. normal perfusion. nl EF. no TID tele: NSR Syncope, palpitations, chest pain: -event associated with palpitations/chest pain preceding (per history obtained by dr narvaez via area operations director) -normal echo and nuclear stress test. no signs of ACS here -no sx's here, tele has been normal -doubt related to hyperthyroid (TSH 0.19)--mgmt per hospitalist -no ECG findings of channelopathy (normal QT, no Brugada findings) -syncope preceded by ill-defined chest sensation (denying cp or palpitations to me repeatedly today, via area operations director). -orthostatic hypotension has not been ruled out--check orthostatics here -advised dtr that her testing is reassuring here, but we have not ruled out intermittently occurring arrhythmia at home. advised she have prolonged rhythm monitor as outpatient (no need for further inpatient w/u in light of lack of hi- risk clinical history features, and normal risk stratification here). dtr states they are in process of obtaining insurance for mom, and then will bring her to mandarin-speaking health specialist. she agrees to obtain these notes and all records from this admit to bring to the health specialist at that time, to consider prolonged rhythm monitoring. otherwise ok for d/c from cv point of view .
[2019-03-29] MEDS ORDERED: ATENOLOL 50 MG TABLET (FP) PO SCH (10:00)
--- NOTE | 2019-03-29 10:55 | PN ---
Teaching Attending Note Name of Resident: Kapil Iglesias ATTENDING PHYSICIAN STATEMENT I saw and evaluated the patient. I reviewed the resident's note and discussed the case with the resident. I agree with the resident's findings and plan as documented. SUBJECTIVE: No further chest discomfort. Dry cough. No fever/chills/sputum/ hemoptysis. OBJECTIVE: Afebrile, Hemodynamically Stable. Last Vital Signs Temp Pulse Resp BP Pulse Ox 98.9 F 96 H 18 139/71 98 03/29/19 06:00 03/29/19 09:03 03/29/19 09:03 03/29/19 09:03 03/28/19 21:00 Heart - S1, S2, RRR Lungs - clear to auscultation Abdomen - Soft, non-tender. Bowel Sounds normal. Extremities - no edema, no calf tenderness. Laboratory Results - last 24 hr 03/28/19 03/29/19 03/29/19 06:00 05:30 05:30 WBC 4.4 RBC 4.12 Hgb 12.6 Hct 37.2 MCV 90.4 MCH 30.6 MCHC 33.9 RDW 13.2 Plt Count 208 MPV 7.8 Absolute Neuts (auto) 2.5 Neutrophils % 57.0 Lymphocytes % 28.4 D Monocytes % 11.8 H Eosinophils % 2.1 D Basophils % 0.7 Nucleated RBC % 0 Sodium 142 Potassium 3.5 Chloride 111 H Carbon Dioxide 22 Anion Gap 9 BUN 16 Creatinine 0.6 Est GFR (CKD-EPI)AfAm 110.86 Est GFR (CKD-EPI)NonAf 95.65 Random Glucose 91 Calcium 8.5 Phosphorus 3.1 Magnesium 2.7 H Total Bilirubin 0.7 AST 24 ALT 48 Alkaline Phosphatase 71 Total Protein 7.0 Albumin 3.6 Hepatitis A IgM Ab Negative Hep Bs Antigen Negative Hep B Core IgM Ab Negative Hepatitis C Antibody <0.1 Current Medications Generic Name Dose Route Start Last Admin Trade Name Freq PRN Reason Stop Dose Admin Atenolol 50 mg 03/29/19 10:00 Tenormin - PO DAILY KAJAL Enoxaparin Sodium 40 mg 03/28/19 10:00 03/29/19 09:05 Lovenox - SQ 40 mg DAILY KAJAL Administration ASSESSMENT AND PLAN: 64 year old female with history of HTN, presents with intermittent CP and SOB prior to possible syncopal episode last evening. Reports history of periodic syncope without preceding CP. 1. Atypical Chest Pain ECG - SR, T wave flattening in V2 TropI neg x 2 NM Stress Test negative 2. History of Syncope CT Head - negative Prior Holter negative reportedly Carotid Duplex - normal. Echo - impaired LV relaxation No events on telemonitoring Evaluated by Cardiology - recommends out-patient follow up for possible loop recorder. 3. Elevated Transaminases - resolved. ?sec to herbal medication Wenxin Granule Abdominal US - GB Polyp. Advised against further use of Wenxin. 4. HTN - resume Bisoprolol on discharge. 5. Low TSH, normal free T4 - no indication for treatment. Out-patient monitoring of thyroid function recommended. Medically Stable for discharge with Cardio follow up.
--- NOTE | 2019-03-29 11:24 | DS ---
Physical Exam: SUBJECTIVE: HPI obtained with home furnishings sales representative phone (#[phone]). Pt did not have any more episodes of syncope or lightheadedness overnight. Pt without chest pain and slept well. She is ready to go home. Pt denies any f/c/n/v, chest pain, palpitations, shortness of breath, abdominal pain, dysuria, polyuria, hematuria. OBJECTIVE: Vital Signs Period Temp Pulse Resp BP Sys/Rodney Pulse Ox Last 24 Hr 97.9 F-99.5 F 69-96 16-18 120-156/71-78 98-99 PHYSICAL EXAM GENERAL: The patient is awake, alert, and fully oriented, in no acute distress. HEENT: NC/AT, AMARIS, MMM NECK: No JVD LUNGS: CTA bilaterally, no wheezes, no crackles, no accessory muscle use. HEART: RRR, S1, S2 without murmur ABDOMEN: Soft, NT/ND, normoactive bowel sounds, no guarding EXTREMITIES: No edema. SKIN: Warm, dry, no rashes or lesions noted. LABS Laboratory Results - last 24 hr 03/28/19 03/29/19 03/29/19 06:00 05:30 05:30 WBC 4.4 RBC 4.12 Hgb 12.6 Hct 37.2 MCV 90.4 MCH 30.6 MCHC 33.9 RDW 13.2 Plt Count 208 MPV 7.8 Absolute Neuts (auto) 2.5 Neutrophils % 57.0 Lymphocytes % 28.4 D Monocytes % 11.8 H Eosinophils % 2.1 D Basophils % 0.7 Nucleated RBC % 0 Sodium 142 Potassium 3.5 Chloride 111 H Carbon Dioxide 22 Anion Gap 9 BUN 16 Creatinine 0.6 Est GFR (CKD-EPI)AfAm 110.86 Est GFR (CKD-EPI)NonAf 95.65 Random Glucose 91 Calcium 8.5 Phosphorus 3.1 Magnesium 2.7 H Total Bilirubin 0.7 AST 24 ALT 48 Alkaline Phosphatase 71 Total Protein 7.0 Albumin 3.6 Hepatitis A IgM Ab Negative Hep Bs Antigen Negative Hep B Core IgM Ab Negative Hepatitis C Antibody <0.1 HOSPITAL COURSE: Date of Admission:03/27/19 Date of Discharge: 03/29/19 Pt was seen here for her chest pain and syncopal episode that she experienced while standing. While she was here she was continued on Atenolol 50mg qdaily ( equivalent to her home dose beta conner. She received an echocardiogram and lexiscan stress test; both of which were negative. While she was on monitor no arrhythmias were seen. Her urine culture from ER workup grew Lactose fermenting gram negative bacilli (80K - 90K), however pt remains asymptomatic and was told to follow-up with her primary care doctor if she develops symptoms. Pt is being discharged home in stable condition with instructions to follow-up with cardiology for a implantable loop recorder for long-term arrhythmia monitoring Minutes to complete discharge: 35 Discharge Summary Reason For Visit: SYNCOPE Condition: Good - Instructions Diet, Activity, Other Instructions: You were seen here for your chest pain. You received a stress test for your heart and had an ultrasound for your heart. Both examinations were normal. MEDICATIONS: Please continue your Bisoprolol 5mg DAILY Follow-up: Please follow-up with your primary doctor (Dr. Rodriguez) to update them on your condition. Please follow-up with Dr. Vieyra (heart doctor) or another career services officer because it is recommended you receive a long-term heart monitor Referrals: Deshaun Rodriguez [Other] Rafiq Vieyra MD [Staff Physician] - Disposition: HOME - Home Medications Comprehensive Discharge Medication List: Ambulatory Orders Bisoprolol Fumarate [Zebeta (Nf) -] 5 mg PO DAILY 03/29/19 This patient is new to me today: Yes Date on this admission: 03/29/19 Emergency Visit: Yes ED Registration Date: 03/27/19 Care time: The patient presented to the Emergency Department on the above date and was hospitalized for further evaluation of their emergent condition. Critical Care patient: No - Discharge Referral Referred to [facility] No
[2019-03-29] MEDS ORDERED: guaiFENesin 200 MG/10 ML 10 ML UNIT-DOSE CUPS PO ONE (12:36)
[2019-03-29 15:09] VITALS: BP 109/65; PULSE 78; TEMP 98
== END 2019-03-29 15:30 | disposition home or self-care (01) ==
LOC: JER 16:37 → JICU 18:58 → UNDOADMOB 19:11 → JICU 19:11 → JERBED 19:11 → OBSVTOIN 03-28 11:50 → INTOOBSV 03-28 11:50 → UNDODISIN 03-28 15:35 → JICU 03-28 17:58 → J2W 03-28 17:58
PROVIDERS: ADMIT Internal Medicine
CPT/HCPCS: 36415; 70450-TC; 70486-TC; 71045-TC-FY; 76705-TC; 78452-TC; 80053; 80061; 80074; 81003; 82550; 82803; 82962; 83605; 83721; 83735; 84100; 84439; 84443; 84484; 85025; 85027; 85379; 85610; 85730; 87040; 87086; 93005; 93010; 93017; 93306-TC; 93880-TC; 99285-25; A9502; G0378; J0131; J2785